=== PATIENT | female | born 1965 | race Caucasian/White ===

== ENCOUNTER 2021-06-12 16:40 | Emergency (ER) | payer BC ==
[2021-06-12] MEDS ORDERED: BABY ASPIRIN 81 MG CHEW PO ONE (17:05)
--- NOTE | 2021-06-12 17:05 | ERPHSYRPT ---
- History of Present Illness Time Seen by Provider: 06/12/21 16:50 Historian: patient Exam Limitations: no limitations Patient Subjective Stated Complaint: PT HERE FOR CHEST PAIN TO [facility] STARTED AN HOUR AGO WHILE WORKING FROM HOME, [place]USEA Triage Nursing Assessment: PT ALERT, WALKED IN, RESP EASY, SKIN W/D/P. NO EDEMA NOTED Physician History: This is a obese 55-year-old white female who does not have a family doctor and is not on any medications and has no known drug allergies and presents with 4 episodes of the last 6 months of similar symptoms of central substernal chest pain described as sharp burning pain without radiation. This this afternoon, there was recurrence of same symptoms was more intense and lasted for longer period time. Upon arrival into the emergency department her symptoms have nearly completely resolved. She had associated nausea as well. She has never had a cholecystectomy. She did not have shortness of breath. She has no cough. She had no other symptoms associated. Patient has had no personal history of myocardial infarction or heart disease Timing/Duration: today Activities at Onset: none Quality: burning, sharpness Location: substernal, central Chest Pain Radiation: no radiation Severity of Pain-Max: moderate Severity of Pain-Current: none Modifying Factors: Improves With: nothing Associated Symptoms: nausea Prior Chest Pain/Cardiac Workup: no prior cardiac workup Nitro Today/Relief: no nitro taken today Aspirin Treatment Today: no aspirin today Allergies/Adverse Reactions: No Known Drug Allergies Allergy (Unverified 06/12/21 16:46) Home Medications: No Reportable Medications [No Reported Medications] 06/12/21 [History] Hx Tetanus, Diphtheria Vaccination/Date Given: No Hx Influenza Vaccination/Date Given: Yes Hx Pneumococcal Vaccination/Date Given: No Immunizations Up to Date: Yes Travel Risk - International Travel Have you traveled outside of the country in past 3 weeks: No - Coronavirus Screening Are you exhibiting any of the following symptoms?: No Close contact with a COVID-19 positive Pt in past 14-21 Days: No - Vaccine Status Have you recieved a Covid-19 vaccination: Yes Family Practice Medical Doctor: [facility] - Vaccination Dates Date of 2cond Vaccination (if applicable): 2020 - Review of Systems Constitutional: No Symptoms Eyes: No Symptoms Ears, Nose, & Throat: No Symptoms Respiratory: No Symptoms Cardiac: Chest Pain (Described as initial sharpness then burning component) Abdominal/Gastrointestinal: Nausea, No Abdominal Pain Genitourinary Symptoms: No Symptoms Musculoskeletal: No Symptoms Skin: No Symptoms Neurological: No Symptoms Psychological: No Symptoms Endocrine: No Symptoms Hematologic/Lymphatic: No Symptoms Immunological/Allergic: No Symptoms All Other Systems: Reviewed and Negative - Past Medical History Pertinent Past Medical History: No - Past Surgical History Past Surgical History: Yes Female Surgical History: Other Other Surgical History: ABLASION - Social History Smoking Status: Former smoker Exposure to second hand smoke: No Drug Use: none Patient Lives Alone: No - Nursing Vital Signs Nursing Vital Signs: Initial Vital Signs Temperature 97.2 F 06/12/21 16:42 Pulse Rate 78 06/12/21 16:42 Respiratory Rate 18 06/12/21 16:42 Blood Pressure 134/84 06/12/21 16:42 O2 Sat by Pulse Oximetry 99 06/12/21 16:42 Pain Scale Pain Intensity 5 - Physical Exam General Appearance: no apparent distress, alert, anxiety, obese Eye Exam: PERRL/EOMI, eyes nml inspection Ears, Nose, Throat Exam: normal ENT inspection, moist mucous membranes Neck Exam: normal inspection, non-tender, supple, full range of motion Respiratory Exam: normal breath sounds, lungs clear, airway intact, No chest tenderness, No respiratory distress Cardiovascular Exam: regular rate/rhythm, normal heart sounds, normal peripheral pulses Gastrointestinal/Abdomen Exam: soft, normal bowel sounds, No tenderness Pelvic Exam: not done Rectal Exam: not done Back Exam: normal inspection, normal range of motion, No CVA tenderness, No v ertebral tenderness Extremity Exam: normal inspection, normal range of motion, pelvis stable Neurologic Exam: alert, oriented x 3, cooperative, stone rougher II-XII nml as tested, normal mood/affect, nml cerebellar function, nml station & gait, sensation nml Skin Exam: normal color, warm, dry Lymphatic Exam: No adenopathy SpO2 Interpretation: normal SpO2: 99 O2 Delivery: Room Air - Course Nursing assessment & vital signs reviewed: Yes EKG Interpreted by Me: RATE (69), Left [place] Deviation, NORMAL INTERVALS (Order line), NORMAL QRS, NORMAL ST-T, Other (No acute ischemic changes. There is no comparison EKG available) Ordered Tests: Active Orders 24 hr Category Date Time Status [employer] STAT Care 06/12/21 17:06 Active EKG-ER Only STAT Care 06/12/21 17:05 Active IV Insertion STAT Care 06/12/21 17:05 Active CHEST 1 VIEW (PORTABLE) Stat Exams 06/12/21 17:06 Taken CBC W DIFF Stat Lab 06/12/21 17:10 Completed CMP Stat Lab 06/12/21 17:10 Completed D-DIMER QUANTITATIVE Stat Lab 06/12/21 17:10 Completed PROTIME WITH INR Stat Lab 06/12/21 17:10 Completed TROPONIN Q3H Lab 06/12/21 17:10 Completed TROPONIN Q3H Lab 06/12/21 20:15 Ordered TROPONIN Q3H Lab 06/12/21 23:15 Ordered TROPONIN Q3H Lab 06/13/21 02:15 Ordered TROPONIN Q3H Lab 06/13/21 05:15 Ordered Medication Summary Discontinued Medications Generic Name Dose Route Start Last Admin Trade Name Freq PRN Reason Stop Dose Admin Al Hydrox/Mg Hydrox/Simethicone Confirm 06/12/21 17:09 Mag Hydrox/Al Hydrox/Simeth 30 Ml Udcup Administered 06/12/21 17:10 Dose 30 ml .ROUTE .STK-MED ONE Aspirin 324 mg 06/12/21 17:05 06/12/21 17:14 Aspirin 81 Mg Tab.Chew PO 06/12/21 17:06 324 mg STAT ONE Administration Aspirin Confirm 06/12/21 17:08 Aspirin 81 Mg Tab.Chew Administered 06/12/21 17:09 Dose 324 mg .ROUTE .STK-MED ONE Lidocaine HCl Confirm 06/12/21 17:09 Lidocaine Hcl Viscous 1 Ml Administered 06/12/21 17:10 Dose 15 ml .ROUTE .STK-MED ONE Magnesium Hydroxide 45 ml 06/12/21 17:06 06/12/21 17:16 Mag Hydrx/Alum Hyd/Simeth/Lido 45 Ml Bottle PO 06/12/21 17:07 45 ml STAT ONE Administration Lab/Rad Data: Laboratory Result Diagrams 06/12/21 17:10 06/12/21 17:10 Laboratory Results 06/12/21 06/12/21 06/12/21 Range/Units 17:10 17:10 17:10 WBC (4.0-10.5) K/mm3 RBC (4.1-5.4) M/mm3 Hgb (12.0-16.0) gm/dl Hct (35-47) % MCV (78-100) fl MCH (26-32) pg MCHC (32-36) g/dl RDW (11.5-14.0) % Plt Count (150-450) K/mm3 MPV (7.5-11.0) fl Gran % (36.0-66.0) % Eos # (Auto) (0-0.5) Absolute Lymphs (auto) (1.0-4.6) Absolute Monos (auto) (0.0-1.3) Lymphocytes % (24.0-44.0) % Monocytes % (0.0-12.0) % Eosinophils % (0.00-5.0) % Basophils % (0.0-0.4) % Absolute Granulocytes (1.4-6.9) Basophils # (0-0.4) PT 11.0 (9.4-12.5) SECONDS INR 0.93 (0.8-3.0) D-Dimer 407 (215-500) ng/mL Sodium 139 (137-145) mmol/L Potassium 4.1 (3.5-5.1) mmol/L Chloride 105 (98-107) mmol/L Carbon Dioxide 26 (22-30) mmol/L Anion Gap 12.8 (5-15) MEQ/L BUN 14 (7-17) mg/dL Creatinine 0.77 (0.52-1.04) mg/dL Estimated GFR > 60.0 ML/MIN Glucose 97 (74-106) mg/dL Calcium 9.0 (8.4-10.2) mg/dL Total Bilirubin 0.30 (0.2-1.3) mg/dL AST 18 (14-36) U/L ALT 15 (0-35) U/L Alkaline Phosphatase 74 (38-126) U/L Troponin I < 0.012 (0.000-0.034) ng/mL Serum Total Protein 6.7 (6.3-8.2) g/dL Albumin 4.0 (3.5-5.0) g/dL 06/12/21 Range/Units 17:10 WBC 7.5 (4.0-10.5) K/mm3 RBC 4.78 (4.1-5.4) M/mm3 Hgb 13.9 (12.0-16.0) gm/dl Hct 42.5 (35-47) % MCV 88.9 (78-100) fl MCH 29.1 (26-32) pg MCHC 32.7 (32-36) g/dl RDW 12.7 (11.5-14.0) % Plt Count 196 (150-450) K/mm3 MPV 11.8 H (7.5-11.0) fl Gran % 57.5 (36.0-66.0) % Eos # (Auto) 0.44 (0-0.5) Absolute Lymphs (auto) 2.19 (1.0-4.6) Absolute Monos (auto) 0.50 (0.0-1.3) Lymphocytes % 29.2 (24.0-44.0) % Monocytes % 6.7 (0.0-12.0) % Eosinophils % 5.9 H (0.00-5.0) % Basophils % 0.7 (0.0-0.4) % Absolute Granulocytes 4.32 (1.4-6.9) Basophils # 0.05 (0-0.4) PT (9.4-12.5) SECONDS INR (0.8-3.0) D-Dimer (215-500) ng/mL Sodium (137-145) mmol/L Potassium (3.5-5.1) mmol/L Chloride (98-107) mmol/L Carbon Dioxide (22-30) mmol/L Anion Gap (5-15) MEQ/L BUN (7-17) mg/dL Creatinine (0.52-1.04) mg/dL Estimated GFR ML/MIN Glucose (74-106) mg/dL Calcium (8.4-10.2) mg/dL Total Bilirubin (0.2-1.3) mg/dL AST (14-36) U/L ALT (0-35) U/L Alkaline Phosphatase (38-126) U/L Troponin I (0.000-0.034) ng/mL Serum Total Protein (6.3-8.2) g/dL Albumin (3.5-5.0) g/dL - Progress Progress: improved, re-examined Air Movement: good Progress Note: 06/12/21 17:50 Chest x-ray shows no acute cardiopulmonary process. 06/12/21 17:51 Patient continues to have no further chest pain. We will discharge her to home. Blood Culture(s) Obtained: No Antibiotics given: No Counseled pt/family regarding: lab results, diagnosis, need for follow-up, rad results - Departure Departure Disposition: Home Clinical Impression: Non-cardiac chest pain Condition: Stable Critical Care Time: No Referrals: DOCTOR,NO FAMILY [Primary Care Provider] - Follow up/PCP as directed Additional Instructions: Avoid fatty greasy spicy foods. Follow-up with your primary care provider (list of providers given to you) for further evaluation and management and possible referral to a critical care unit manager if indicated.
[2021-06-12] MEDS ORDERED: GI COCKTAIL 45 ML (Maalox/Lidocaine) PO ONE (17:06)
[2021-06-12] MEDS ORDERED: BABY ASPIRIN 81 MG CHEW ONE (17:08)
[2021-06-12] MEDS ORDERED: XYLOCAINE HCl Viscous ONE (17:09)
[2021-06-12] MEDS ORDERED: MAALOX ES 30 ML UNIT DOSE ONE (17:09)
[2021-06-12 17:23] LABS: Absolute Neutrophil Ct (ANC) 4.32 (1.4-6.9); Basophil (Absolute #) 0.05 (0-0.4); Eosinophil % 5.9 % (0.00-5.0); Eosinophil (Absolute #) 0.44 (0-0.5); Hematocrit 42.5 % (35-47); Hemoglobin 13.9 gm/dl (12.0-16.0); Lymphocyte (Absolute #) 2.19 (1.0-4.6); Lymphocytes % 29.2 % (24.0-44.0); Mean Cell Volume 88.9 fl (78-100); Mean Corpuscular Hemoglobin 29.1 pg (26-32); Mean Corpuscular Hgb Concent. 32.7 g/dl (32-36); Mean Platelet Volume 11.8 fl (7.5-11.0); Monocytes % 6.7 % (0.0-12.0); Neutrophil % 57.5 % (36.0-66.0); Platelet Count 196 K/mm3 (150-450); Red Blood Count 4.78 M/mm3 (4.1-5.4); Red Cell Distribution Width 12.7 % (11.5-14.0); White Blood Count 7.5 K/mm3 (4.0-10.5)
[2021-06-12 17:31] LABS: INR 0.93 (0.8-3.0)
[2021-06-12 17:35] LABS: ALKALINE PHOSPHATASE 74 U/L (38-126); ANION GAP 12.8 MEQ/L (5-15); BLOOD UREA NITROGEN 14 mg/dL (7-17); CHLORIDE 105 mmol/L (98-107); Carbon Dioxide 26 mmol/L (22-30); Creatinine 1 0.77 mg/dL (0.52-1.04); EST GLOMERULAR FILTRATION RATE > 60.0 ML/MIN; Glucose 97 mg/dL (74-106); Potassium 4.1 mmol/L (3.5-5.1); SGOT/AST 18 U/L (14-36); SGPT/ALT 15 U/L (0-35); SODIUM 139 mmol/L (137-145); Total Protein 6.7 g/dL (6.3-8.2)
[2021-06-12 18:03] VITALS: BP 115/63; PULSE 69; O2SAT 96
--- NOTE | 2021-06-13 08:39 | XRAY ---
Indication: Chest pain. Comparison: None Portable chest clear. Heart and mediastinal structures within normal limits. Bony thorax intact with mild degenerative changes. Impression: Nonacute chest.
== END 2021-06-12 18:03 | disposition home or self-care (01) ==
LOC: ED 16:40
DX: R07.89 Other chest pain (principal); R11.0 Nausea
CPT/HCPCS: 36000; 36415; 71045; 80053; 84484; 85025; 85379; 85610; 93005; 93041; 99284; A9270-GY

== ENCOUNTER 2024-07-19 23:05 | Emergency (ER) | payer BC ==
[2024-07-19 23:48] VITALS: TEMP 98.7
[2024-07-20 00:12] LABS: Absolute Neutrophil Ct (ANC) 5.75 x10^3/uL (1.56-6.13); BASOPHIL % 0.6 % (0.1-1.2); Basophil (Absolute #) 0.05 x10^3/uL (0.01-0.08); Eosinophil % 7.2 % (0.7-5.8); Eosinophil (Absolute #) 0.59 x10^3/uL (0.04-0.36); Hematocrit 40.7 % (34.1-44.9); Hemoglobin 13.8 g/dL (11.2-15.7); IMMATURE GRAN # 0.02 x10^3u/L (0.001-0.031); IMMATURE GRAN % 0.2 % (0.001-0.429); Lymphocyte (Absolute #) 1.37 x10^3/uL (1.18-3.74); Lymphocytes % 16.7 % (19.3-51.7); Mean Cell Volume 86.2 fL (79.4-94.8); Mean Corpuscular Hemoglobin 29.2 pg (25.6-32.2); Mean Corpuscular Hgb Concent. 33.9 g/dL (32.2-35.5); Mean Platelet Volume 11.7 fL (9.4-12.3); Monocyte (Absolute #) 0.42 x10^3/uL (0.24-0.86); Monocytes % 5.1 % (4.7-12.5); Neutrophil % 70.2 % (34.0-71.1); Platelet Count 165 x10^3/uL (182-369); Red Blood Count 4.72 x10^6/uL (3.93-5.22); Red Cell Distribution Width 11.9 % (11.7-14.4); White Blood Count 8.2 x10^3/uL (3.98-10.04)
[2024-07-20] MEDS ORDERED: Sodium Chloride 0.9% 1000 ML 1,000 ML ONE (00:19)
[2024-07-20] MEDS ORDERED: Zofran 4 MG/2 ML VIAL ONE ×2 (00:19→02:11)
[2024-07-20] MEDS: Sodium Chloride 0.9% 1000 ML 1,000 ML IV STA (00:20)
[2024-07-20] MEDS: Zofran 4 MG/2 ML VIAL IV ONE ×2 (00:21→02:12)
[2024-07-20 00:26] LABS: ANION GAP 13.8 MEQ/L (5-15); BILIRUBIN,TOTAL 0.6 mg/dL (0.2-1.3); Creatinine 1 0.83 mg/dL (0.52-1.04); EST GLOMERULAR FILTRATION RATE 82.7 ML/MIN; Potassium 3.3 mmol/L (3.5-5.1); Total Protein 6.4 g/dL (6.3-8.2)
--- NOTE | 2024-07-20 00:46 | ERPHSYRPT ---
- History of Present Illness Source: patient Exam Limitations: no limitations Patient Subjective Stated Complaint: nausea vomiting and diarrhea since june 22. Triage Nursing Assessment: pt states abdomen is distended and she cannot keep any food down. nausea vomiting and diarrhea comes and goes. some days she feels better than others. Physician History: Patient's had nausea vomiting diarrhea for about a month. She was recently put on antibiotics. She does not know which one it was. They did a Shigella and Salmonella test and also Campylobacter ova and parasites and 1 other organism. It came back negative for Salmonella and Shigella.She is not having any abdominal pain. She is having frequent diarrhea. She thinks she might be dehydrated. She is vomiting sometimes as well 2. She has been followed up by her primary care doctor. She has no abdominal pain no fever chills or other systemic symptoms. The emesis is usually just what she has eaten.But now she is having some dry heaves. Allergies/Adverse Reactions: No Known Drug Allergies Allergy (Unverified 06/12/21 16:46) Home Medications: No Reportable Medications [No Reported Medications] 06/12/21 [History] Hx Tetanus, Diphtheria Vaccination/Date Given: No Hx Influenza Vaccination/Date Given: Yes Hx Pneumococcal Vaccination/Date Given: No Immunizations Up to Date: Yes Travel Risk - International Travel Have you traveled outside of the country in past 3 weeks: Yes If Yes, where;: [facility] [place] - Emerging Infectious Disease Are you exhibiting symptoms associated with any current EIDs: Yes Symptoms: Diarrhea, Vomitting Comment: went on a cruise 05-07 through 05-15. began june 22 diarrhea vomiting and abd pain - Review of Systems Constitutional: No Symptoms Eyes: No Symptoms Skin: No Symptoms Neurological: No Symptoms All Other Systems: Reviewed and Negative - Past Medical History Pertinent Past Medical History: No Neurological History: Migraines Cardiac History: Arrhythmia Respiratory History: Asthma, Other Endocrine Medical History: Other Musculoskeletal History: Fractures Other Medical History: hx of thyroid issues with medication; however, patient is unable to recall if hypo- or hyperthyroidism or the name of her medication, COVID-19 x2, L clavicle fx, R foot fx, R fourth finger fractures, ovarian cyst removals, tonsillectomy - Past Surgical History Past Surgical History: Yes Female Surgical History: Other Other Surgical History: ABLASION - Social History Smoking Status: Former smoker Exposure to second hand smoke: No Drug Use: none - Social Determinants of Health Will the patient participate in the screening: Declined to provide - Nursing Vital Signs Nursing Vital Signs: Initial Vital Signs Temperature 98.7 F 07/19/24 23:05 Pulse Rate 58 L 07/19/24 23:05 Respiratory Rate 18 07/19/24 23:05 Blood Pressure 122/52 07/19/24 23:05 O2 Sat by Pulse Oximetry 98 07/19/24 23:05 Pain Scale Pain Intensity 7 - Physical Exam General Appearance: no apparent distress Eye Exam: PERRL/EOMI Gastrointestinal/Abdomen Exam: soft, normal bowel sounds, No tenderness, No distention Pelvic Exam: not done Rectal Exam: deferred Neurologic Exam: alert, oriented x 3 Skin Exam: normal color, warm SpO2: 99 Ordered Tests: Active Orders 24 hr Category Date Time Status CBC W DIFF Stat Lab 07/20/24 00:10 Completed CMP Stat Lab 07/20/24 00:10 Completed Medication Summary Generic Name Dose Route Start Last Admin Trade Name Freq PRN Reason Stop Dose Admin Sodium Chloride 1,000 mls @ 999 mls/hr 07/20/24 00:01 07/20/24 00:20 Sodium Chloride 0.9% 1000 Ml IV 07/20/24 01:01 999 mls/hr .Q1H1M STA Administration Discontinued Medications Generic Name Dose Route Start Last Admin Trade Name Freq PRN Reason Stop Dose Admin Sodium Chloride Confirm 07/20/24 00:19 Sodium Chloride 0.9% 1000 Ml Administered 07/20/24 00:20 Dose 1,000 mls @ ud .ROUTE .STK-MED ONE Ondansetron HCl 4 mg 07/20/24 00:01 07/20/24 00:21 Ondansetron Hcl 4 Mg/2 Ml Vial IV 07/20/24 00:02 4 mg STAT ONE Administration Ondansetron HCl Confirm 07/20/24 00:19 Ondansetron Hcl 4 Mg/2 Ml Vial Administered 07/20/24 00:20 Dose 4 mg .ROUTE .STK-MED ONE Lab/Rad Data: Laboratory Result Diagrams 07/20/24 00:10 07/20/24 00:10 Laboratory Results 07/20/24 07/20/24 Range/Units 00:10 00:10 WBC 8.2 (3.98-10.04) x10^3/uL RBC 4.72 (3.93-5.22) x10^6/uL Hgb 13.8 (11.2-15.7) g/dL Hct 40.7 (34.1-44.9) % MCV 86.2 (79.4-94.8) fL MCH 29.2 (25.6-32.2) pg MCHC 33.9 (32.2-35.5) g/dL RDW 11.9 (11.7-14.4) % Plt Count 165 L (182-369) x10^3/uL MPV 11.7 (9.4-12.3) fL Gran % 70.2 (34.0-71.1) % Immature Gran % (Auto) 0.2 (0.001-0.429) % Nucleat RBC Rel Count 0.0 (0.00-0.2) % Eos # (Auto) 0.59 H (0.04-0.36) x10^3/uL Immature Gran # (Auto) 0.02 (0.001-0.031) x10^3u/L Absolute Lymphs (auto) 1.37 (1.18-3.74) x10^3/uL Absolute Monos (auto) 0.42 (0.24-0.86) x10^3/uL Absolute Nucleated RBC 0.00 (0.00-0.012) x10^3u/L Lymphocytes % 16.7 L (19.3-51.7) % Monocytes % 5.1 (4.7-12.5) % Eosinophils % 7.2 H (0.7-5.8) % Basophils % 0.6 (0.1-1.2) % Absolute Granulocytes 5.75 (1.56-6.13) x10^3/uL Basophils # 0.05 (0.01-0.08) x10^3/uL Sodium 138 (135-145) mmol/L Potassium 3.3 L (3.5-5.1) mmol/L Chloride 103 (98-107) mmol/L Carbon Dioxide 24 (22-30) mmol/L Anion Gap 13.8 (5-15) MEQ/L BUN 10 (7-17) mg/dL Creatinine 0.83 (0.52-1.04) mg/dL Estimated GFR 82.7 ML/MIN Glucose 103 (74-106) mg/dL Calcium 9.0 (8.4-10.2) mg/dL Total Bilirubin 0.60 (0.2-1.3) mg/dL AST 97 H (14-36) U/L ALT 61 H (0-35) U/L Alkaline Phosphatase 91 (38-126) U/L Serum Total Protein 6.4 (6.3-8.2) g/dL Albumin 4.0 (3.5-5.0) g/dL - Progress Progress: improved Progress Note: Patient was stable throughout stay. I looked at her micro biology of the stool specimen. They are still waiting on a couple results but Salmonella and Shigella are both negative. Her labs all look very good. Chemistry was within normal limits as was the CBC. Her exam was benign. I do not think she has any surgical abdomen or condition that she needs to be admitted for.I am going to hydrate her and give her some Zofran. She can follow-up with her primary care doctor. 07/20/24 00:43 - Departure Departure Disposition: Home Clinical Impression: Nausea vomiting and diarrhea Condition: Stable Critical Care Time: No Referrals: BRIGIDO RAJAN NP [Primary Care Provider, FAMILY PRACTICE] - Follow up/PCP as directed Instructions: Vomiting -- Adult
[2024-07-20] MEDS: Compazine 10 MG/2 ML IV ONE (01:36)
[2024-07-20] MEDS ORDERED: Compazine 10 MG/2 ML ONE (01:36)
[2024-07-20 02:02] VITALS: BP 123/59; PULSE 68; RESP 17; O2SAT 95
== END 2024-07-20 02:29 | disposition home or self-care (01) ==
LOC: ED 23:05
DX: R11.2 Nausea with vomiting, unspecified (principal); R19.7 Diarrhea, unspecified; Z79.899 Other long term (current) drug therapy
CPT/HCPCS: 36415; 80053; 85025; 96374; 96375; 96376; 99284; J2405

== ENCOUNTER 2024-07-27 05:55 | Day surgery (SDC) | payer BC ==
[2024-07-27] MEDS ORDERED: Lactated Ringers 1,000 ML IV ONE (05:57)
[2024-07-27 06:11] VITALS: RESP 18; O2SAT 97
[2024-07-27] MEDS: Lactated Ringers 1,000 ML IV SCH (06:13)
[2024-07-27] MEDS ORDERED: Versed 2 MG/2 ML Injection ONE (07:35)
[2024-07-27] MEDS ORDERED: propofoL IV ONE ×2 (07:35→07:43)
[2024-07-27 08:24] VITALS: TEMP 97.8
[2024-07-27 08:33] VITALS: BP 130/80; PULSE 65
--- NOTE | 2024-07-28 08:59 | OP ---
SURGERY DATE/TIME: 07/27/2024 [id number] PREOPERATIVE DIAGNOSIS: Screening exam. POSTOPERATIVE DIAGNOSIS: Normal colon. PROCEDURE: Colonoscopy. SURGEON: Eloy Morrison MD ANESTHESIA: Medications given by the anesthesia department. INDICATIONS: The patient is a 58-year-old white female presenting now for colonoscopy. This will be her first examination. She reported she did have some problems with diarrhea previously and now has some upper GI symptoms, but her colon symptoms have resolved. The patient was apprised of the risks of the procedure including risks of perforation, phlebitis, untoward reaction to medication, bleeding, and missed lesions. The patient verbalized her understanding and desired to have the procedure performed. DESCRIPTION OF PROCEDURE AND FINDINGS: The patient was given medication by the anesthesia department. She had continuous pulse oximetry, ECG monitoring, and intermittent blood pressure monitoring during the examination. She was placed in left lateral decubitus position. Digital rectal examination was performed and revealed normal anal sphincter tone and no masses. The flexible Olympus pediatric colonoscope was used to intubate the rectum. A view of the colon was developed sequentially to the cecum including a short distance into the terminal ileum. Upon insertion and withdrawal, including a retroflexed view in the rectum, no mucosal lesions were encountered. The scope was removed. The patient tolerated the procedure well and was sent back to outpatient recovery in good condition. The prep was noted to be fair to good.
== END 2024-07-27 08:40 | disposition home or self-care (01) ==
LOC: SDC 05:55
PROVIDERS: ATTEND Family Medicine
DX: Z12.11 Encounter for screening for malignant neoplasm of colon (principal); E78.5 Hyperlipidemia, unspecified; Z79.899 Other long term (current) drug therapy
CPT/HCPCS: 82947; J2250; J2704